=== PATIENT | male | born 1955 | race Caucasian/White ===

== ENCOUNTER 2018-09-15 14:04 | Outpatient (CLI) | payer OTHER ==
[2018-09-15] MEDS ORDERED: ALLO100T64 PO (14:34)
[2018-09-15 15:07] LABS: BASOPHILS # (AUTO) 0.02 x10^3/uL (0-0.1); BASOPHILS % (AUTO) 0 % (0-1); EOSINOPHILS # (AUTO) 0.02 x10^3/uL (0-0.4); EOSINOPHILS % (AUTO) 0 % (1-7); LYMPHOCYTES # (AUTO) 0.93 x10^3/uL (1-3.4); LYMPHOCYTES % (AUTO) 11 % (22-44); MD NO; MEAN CORPUSCULAR HEMOGLOBIN 30.8 pg (27.5-34.5); MEAN CORPUSCULAR HGB CONC 33.4 g/dL (33.2-36.2); MEAN CORPUSCULAR VOLUME 92.4 fL (81-97); MEAN PLATELET VOLUME 10.1 fL (7.4-10.4); MONOCYTES # (AUTO) 0.16 x10^3/uL (0.2-0.8); MONOCYTES % (AUTO) 2 % (2-9); NEUTROPHILS # (AUTO) 7.01 x10^3/uL (1.8-6.8); NEUTROPHILS % (AUTO) 86 % (42-75); PLATELET COUNT 210 x10^3/uL (130-400); RED BLOOD COUNT 5.52 x10^6/uL (4.38-5.82); RED CELL DISTRIBUTION WIDTH 13.4 % (9.4-14.8)
[2018-09-15 15:13] LABS: ANION GAP 9 mmol/L (5-15); CALCIUM 9.9 mg/dL (8.5-10.1); CHLORIDE 107 mmol/L (98-107); CREATININE 0.87 mg/dL (0.7-1.3)
[2018-09-15 15:17] LABS: INTERNATIONAL NORMALIZED RATIO 1.02 (0.93-1.1); PROTHROMBIN TIME 10.8 Seconds (9.6-11.5)
[2018-09-15 15:24] LABS: HEMOGLOBIN A1C 5.5 % (4.2-6.3)
== END 2018-09-15 23:59 | disposition home or self-care (01) ==
LOC: STAR 14:04
PROVIDERS: ATTEND Orthopaedic Surgery
DX: Z01.818 Encounter for other preprocedural examination (principal); M17.11 Unilateral primary osteoarthritis, right knee
CPT/HCPCS: 36415; 80048; 83036; 85025; 85610; 85730; 87081; 93005

== ENCOUNTER 2018-09-24 05:54 | Day surgery (SDC) | payer OTHER ==
[~2018-09-24] VITALS: Ht 177.8 cm; Wt 99.5 kg
[~2018-09-24 05:54] MED LIST: ALLO100T64 PO
[2018-09-24] MEDS ORDERED: NS + 20MEQ KCL 1,000 ML IV SCH (06:10)
[2018-09-24] MEDS ORDERED: OXYcodone IR 5MG TABLET PO PRN (06:30)
[2018-09-24] MEDS ORDERED: BISACODYL 10 MG SUPP PR PRN (06:30)
[2018-09-24] MEDS ORDERED: ONDANSETRON 2MG/ML, 2ML IV PRN ×2 (06:30→09:30)
[2018-09-24] MEDS ORDERED: DIPHENHYDRAMINE 50 MG CAPSULE PO PRN (06:30)
[2018-09-24] MEDS ORDERED: SENNA/DOCUSATE TABLET PO PRN (06:30)
[2018-09-24] MEDS ORDERED: ONDANSETRON 4 MG TABLET PO PRN (06:30)
[2018-09-24] MEDS ORDERED: SCOPOLAMINE PATCH, 1.5MG PATCH.TD72 TD ONE (06:30)
[2018-09-24] MEDS ORDERED: HYDROmorphone 1 MG/ML, 1ML IV PRN (06:30)
[2018-09-24] MEDS ORDERED: MAGNESIUM HYDROXIDE 8%, 30ML UDC PO PRN (06:30)
[2018-09-24] MEDS ORDERED: ZOLPIDEM 5MG TABLET PO PRN (06:30)
[2018-09-24] MEDS ORDERED: CEFAZOLIN PMX 2GM/50ML 50 ML IVPB SCH (06:30)
[2018-09-24] MEDS ORDERED: ACETAMINOPHEN 650 MG/20.3 ML UDC PO PRN (06:30)
[2018-09-24] MEDS ORDERED: HYDROcodone/APAP 5/325 TABLET PO PRN (06:30)
[2018-09-24 06:49] VITALS: BP 145/84
[2018-09-24] MEDS ORDERED: ACETAMINOPHEN 500 MG TABLET PO ONE (07:00)
[2018-09-24] MEDS ORDERED: GABAPENTIN 300 MG CAPSULE PO ONE (07:00)
[2018-09-24] MEDS ORDERED: KETOROLAC 60 MG/2 ML ONE (07:02)
[2018-09-24] MEDS ORDERED: TRANEXAMIC ACID 100 MG/ML, 10ML ONE ×3 (07:02)
[2018-09-24] MEDS ORDERED: EPINEPHRINE 1 MG/ML, 1ML ONE (07:03)
[2018-09-24] MEDS ORDERED: VANCOMYCIN 1,000 MG ONE (07:03)
[2018-09-24] MEDS ORDERED: ROPIvacaine/PF 0.5%, 30 ML ONE (07:03)
[2018-09-24] MEDS ORDERED: LACTATED RINGERS 1,000 ML IV SCH (07:09)
[2018-09-24] MEDS ORDERED: LIDOCAINE-MPF 1%, 2ML INFIL ONE (07:30)
[2018-09-24] MEDS ORDERED: FENTANYL PF 250 MCG/5ML ONE (07:43)
[2018-09-24] MEDS ORDERED: MIDAZOLAM 1 MG/ML, 2ML ONE ×2 (07:43→09:59)
[2018-09-24] MEDS ORDERED: DEXAMETHASONE 4 MG/ML, 1ML ONE ×2 (08:04→08:20)
[2018-09-24] MEDS ORDERED: EPHEDRINE 50 MG/ML, 1ML ONE (08:13)
[2018-09-24] MEDS ORDERED: ROPIvacaine/PF 0.2%, 20 ML ONE (08:16)
[2018-09-24] MEDS ORDERED: ROCURONIUM 10MG/ML,5ML ONE (08:19)
[2018-09-24] MEDS ORDERED: ONDANSETRON 2MG/ML, 2ML ONE ×2 (08:20)
[2018-09-24] MEDS ORDERED: CEFAZOLIN 1,000 MG ONE ×2 (08:20)
[2018-09-24] MEDS ORDERED: SUCCINYLCHOLINE 20 MG/ML, 10ML ONE (08:20)
[2018-09-24] MEDS ORDERED: DOCUSATE 100 MG CAPSULE PO SCH (09:00)
[2018-09-24] MEDS ORDERED: ALLOPURINOL 100 MG PO SCH (09:00)
[2018-09-24] MEDS: FENTANYL PF 100 MCG/2ML IV PRN ×2 (09:25→09:31)
[2018-09-24] MEDS ORDERED: OXYcodone 5 MG/5 ML ORAL.SOL UDC ONE (09:25)
[2018-09-24] MEDS ORDERED: FENTANYL PF 100 MCG/2ML ONE (09:25)
[2018-09-24] MEDS ORDERED: ALBUTEROL SULFATE 2.5 MG/3 ML NPPB PRN (09:30)
[2018-09-24] MEDS ORDERED: ONDANSETRON ODT 8 MG PO PRN (09:30)
[2018-09-24] MEDS ORDERED: hydrALAzine 20 MG/ML, 1ML IV PRN (09:30)
[2018-09-24] MEDS ORDERED: PROMETHAZINE 12.5 MG SUPP PR PRN (09:30)
[2018-09-24] MEDS ORDERED: MEPERIDINE/PF 25MG/0.5ML IVPush PRN (09:30)
[2018-09-24] MEDS ORDERED: HALOPERIDOL 5 MG/ML IV PRN (09:30)
[2018-09-24] MEDS ORDERED: PROMETHAZINE 25 MG/ML, 1ML IV PRN (09:30)
[2018-09-24] MEDS ORDERED: LABETALOL 5MG/ML, 20ML IV PRN (09:30)
[2018-09-24] MEDS ORDERED: OXYcodone 5 MG/5 ML ORAL.SOL UDC PO PRN (09:30)
[2018-09-24] MEDS ORDERED: MIDAZOLAM 1 MG/ML, 2ML IV PRN (09:30)
[2018-09-24] MEDS ORDERED: MORPHINE SULFATE 4 MG/ML, 1ML IVPush PRN (09:30)
[2018-09-24] MEDS ORDERED: EPHEDRINE 50 MG/ML, 1ML IVPush PRN (09:30)
[2018-09-24] MEDS ORDERED: DIAZEPAM 5 MG/ML, 2ML IVPush PRN (09:30)
[2018-09-24] MEDS ORDERED: MEPERIDINE/PF 25MG/ML,1ML ONE (09:35)
[2018-09-24] MEDS ORDERED: HYDROmorphone 2 MG/ML, 1ML ONE (09:43)
[2018-09-24] MEDS: HYDROmorphone 2 MG/ML, 1ML IVPush PRN ×4 (09:45→10:22)
[2018-09-24 13:26] VITALS: BP 137/73
[2018-09-24] MEDS ORDERED: OXYC5CAP2 PO (15:41)
[2018-09-24] MEDS ORDERED: TRAM50TA2 PO (15:42)
[2018-09-24] MEDS ORDERED: MELO7.5T5 PO (15:42)
[2018-09-24] MEDS ORDERED: RIVA10TA2 PO (15:42)
[2018-09-24] MEDS ORDERED: ASPIRIN 81 MG TABLET EC PO SCH (18:00)
[2018-09-25] MEDS ORDERED: DEXAMETHASONE 4 MG/ML, 1ML IVPush SCH (06:00)
== END 2018-09-24 16:00 | disposition home or self-care (01) ==
LOC: OUT 05:54 → 4NOR 10:48 → OUT 16:00
PROVIDERS: ATTEND Orthopaedic Surgery
DX: M17.11 Unilateral primary osteoarthritis, right knee (principal); M10.9 Gout, unspecified
CPT/HCPCS: 27447; 64447; 97161; 97165; C1713; C1776; J0171; J0330; J0690; J1100; J1170; J1885; J2175; J2250; J2405; J2795; J3010; J3480; J3490; J7120; G0378; J3370